=== PATIENT | female | born 1970 | race Hispanic/Latino ===

== ENCOUNTER 2017-01-13 19:46 | Emergency (ER) | payer SELFPAY ==
[~2017-01-13] VITALS: Ht 157.5 cm; Wt 96.4 kg
[~2017-01-13 19:46] MED LIST: ACTOS15 MG PO; BACTRIM DS1 TAB PO; CEPHALEXIN500 MG OR; CEPHALEXIN500 MG PO; GLIPIZIDE10 MG PO; GLUCOPHAGE1000 MG PO; GLYBURIDE2.5 MG OR; LANTUS100 MG/ML SC; LEVOTHYROXIN75 MCG PO; LISINOPRIL10 MG OR; LORTAB 1010 MG PO; LORTAB 5/3255 MG PO; LORTAB5 PO; METFORMIN500 M1 OR; METRONIDAZOL500 MG PO; NOVOLIN 70/30 SC; ULTRAM50 M1 PO
[2017-01-13] MEDS ORDERED: METFORMIN500 MG PO (20:00)
[2017-01-13] MEDS ORDERED: LOSARTAN POTASS50 MG PO (20:01)
[2017-01-13] MEDS ORDERED: VENLAFAXINE HCL75 M1 PO (20:01)
[2017-01-13] MEDS ORDERED: HYDROCHLOROT12.5 MG PO (20:02)
[2017-01-13] MEDS ORDERED: ZOFRAN ODT4 MG PO (20:03)
[2017-01-13] MEDS ORDERED: LEVEMIR100 UNIT/M SC (20:04)
[2017-01-13 20:55] LABS: URINE BILIRUBIN - DIPSTICK NEGATIVE (NEGATIVE); URINE BLOOD DIPSTICK NEGATIVE (NEGATIVE); URINE COLOR YELLOW; URINE GLUCOSE - DIPSTICK >=1000 mg/dL (NEGATIVE); URINE KETONE 15 mg/dL (NEGATIVE); URINE LEUK ESTERASE NEGATIVE (NEGATIVE); URINE NITRITE - DIPSTICK NEGATIVE (Negative); URINE PROTEIN - DIPSTICK NEGATIVE (NEG-TRACE); URINE SPECIFIC GRAVITY 1.015; URINE UROBILINOGEN - DIPSTICK 0.2 E.U./dL (0.2)
[2017-01-13 20:56] LABS: HEMATOCRIT 44.8 % (37.0-47.0); HEMOGLOBIN 14.9 g/dl (12.0-16.0); IMMATURE GRANULOCYTES 0.2 % (0.0-1.0); MEAN CELL VOLUME 84.5 fL CALC (80.0-100.0); MEAN CORPUSCULAR HGB 28.1 pG CALC (26.0-32.0); MEAN CORPUSCULAR HGB CONC 33.3 g/L CALC (32.0-36.0); NEUT# 4.85 thou/uL (2.00-7.15); RED BLOOD COUNT 5.3 mill/uL (4.20-5.60); RED CELL DISTRI WIDTH 12.6 % (11.5-15.5); URINE CLARITY CLEAR
[2017-01-13 21:07] LABS: ALBUMIN 4.5 g/dL (3.2-5.0); ALKALINE PHOSPHATASE 125 u/l (38-126); AMYLASE 51 u/l (30-110); ANION GAP 18 (6-22 (CALC)); BILIRUBIN, TOTAL 0.6 mg/dL (0.0-1.4); BUN 10 mg/dL (7-17); BUN/CREATININE RATIO 21 (12-20 (CALC)); CALCIUM 9.6 mg/dL (8.4-10.2); CARBON DIOXIDE 27 mmol/l (22-30); CHLORIDE 99 mmol/l (95-108); CREATININE 0.5 mg/dL (0.5-1.0); GFR > 60 ML/MIN (>=60 (CALC)); GFR FOR AFR.AMER. > 60 ML/MIN (>=60 (CALC)); GLUCOSE 334 mg/dL (65-105); LIPASE 235 u/l (23-300); POTASSIUM 4.1 mmol/l (3.5-5.1); SGOT/AST 40 u/l (14-36); SGPT/ALT 71 u/l (9-52); SODIUM 139 mmol/l (137-146)
[2017-01-13 21:19] LABS: MYOGLOBIN 50 ng/mL (0 - 62)
[2017-01-13 22:14] VITALS: BP 128/65
== END 2017-01-13 22:21 | disposition home or self-care (01) | DRG 392 ==
LOC: ED 19:46
PROVIDERS: Emergency Medicine
DX: R11.2 Nausea with vomiting, unspecified (principal); E11.9 Type 2 diabetes mellitus without complications; Z79.4 Long term (current) use of insulin
CPT/HCPCS: S0164

== ENCOUNTER 2017-03-30 18:57 | Emergency (ER) | payer BC ==
[~2017-03-30] VITALS: Ht 157.5 cm; Wt 99.0 kg
[~2017-03-30 18:57] MED LIST changes: +HYDROCHLOROT12.5 MG PO; +LEVEMIR100 UNIT/M SC; +LOSARTAN POTASS50 MG PO; +METFORMIN500 MG PO; +VENLAFAXINE HCL75 M1 PO; +ZOFRAN ODT4 MG PO
[2017-03-30] MEDS ORDERED: ZESTRIL10 M1 PO (19:18)
[2017-03-30] MEDS ORDERED: LEVOTHYROXINE75 MCG PO (19:18)
[2017-03-30] MEDS ORDERED: LISINOP/HCTZ1 TAB PO (19:32)
[2017-03-30] MEDS ORDERED: LEVOTHYROXIN75 MC1 PO (19:33)
[2017-03-30] MEDS ORDERED: NOVOLIN 70/30 SC ×2 (19:34)
[2017-03-30 20:18] LABS: INFLUENZA A NONE DETECTED (NONE DETECT); INFLUENZA B NONE DETECTED (NONE DETECT)
[2017-03-30] MEDS ORDERED: ROBITUSSIN AC10 ML PO (20:24)
[2017-03-30] MEDS ORDERED: CEPHALEXIN500 MG PO (20:24)
[2017-03-30 20:30] VITALS: BP 149/74
== END 2017-03-30 20:30 | disposition home or self-care (01) | DRG 153 ==
LOC: ED 18:57
PROVIDERS: Emergency Medicine
DX: J06.9 Acute upper respiratory infection, unspecified (principal); E11.9 Type 2 diabetes mellitus without complications; I10 Essential (primary) hypertension

== ENCOUNTER 2017-04-08 19:21 | Inpatient (IN) | payer BC ==
[~2017-04-08] VITALS: Ht 157.5 cm; Wt 96.0 kg
[~2017-04-08 19:21] MED LIST changes: +LEVOTHYROXIN75 MC1 PO; +LEVOTHYROXINE75 MCG PO; +LISINOP/HCTZ1 TAB PO; +ROBITUSSIN AC10 ML PO; +ZESTRIL10 M1 PO
[2017-04-08 20:26] LABS: IMMATURE GRANULOCYTES 0.9 % (0.0-1.0); MEAN CELL VOLUME 85.5 fL CALC (80.0-100.0); MEAN CORPUSCULAR HGB 27.4 pG CALC (26.0-32.0); NEUT# 10.04 thou/uL (2.00-7.15); RED BLOOD COUNT 4.35 mill/uL (4.20-5.60)
[2017-04-08 20:28] LABS: URINE BILIRUBIN - DIPSTICK NEGATIVE (NEGATIVE); URINE BLOOD DIPSTICK NEGATIVE (NEGATIVE); URINE COLOR YELLOW; URINE GLUCOSE - DIPSTICK >=1000 mg/dL (NEGATIVE); URINE KETONE NEGATIVE (NEGATIVE); URINE LEUK ESTERASE NEGATIVE (NEGATIVE); URINE NITRITE - DIPSTICK NEGATIVE (Negative); URINE PROTEIN - DIPSTICK NEGATIVE (NEG-TRACE); URINE SPECIFIC GRAVITY 1.015; URINE UROBILINOGEN - DIPSTICK 0.2 E.U./dL (0.2)
[2017-04-08 20:29] LABS: HEMATOCRIT 37.2 % (37.0-47.0); HEMOGLOBIN 11.9 g/dl (12.0-16.0)
[2017-04-08 20:30] LABS: URINE CLARITY CLEAR
[2017-04-08 20:41] LABS: ALKALINE PHOSPHATASE 130 u/l (38-126); AMYLASE 41 u/l (30-110); ANION GAP 18 (6-22 (CALC)); BILIRUBIN, TOTAL 0.5 mg/dL (0.0-1.4); BUN 11 mg/dL (7-17); BUN/CREATININE RATIO 17 (12-20 (CALC)); CARBON DIOXIDE 29 mmol/l (22-30); CHLORIDE 95 mmol/l (95-108); CREATININE 0.6 mg/dL (0.5-1.0); GFR > 60 ML/MIN (>=60 (CALC)); GFR FOR AFR.AMER. > 60 ML/MIN (>=60 (CALC)); LIPASE 53 u/l (23-300); POTASSIUM 4.1 mmol/l (3.5-5.1); SGOT/AST 19 u/l (14-36); SGPT/ALT 30 u/l (9-52); SODIUM 137 mmol/l (137-146); TOTAL PROTEIN 7.7 g/dL (6.3-8.2)
[2017-04-08 23:20] VITALS: BP 136/73
[2017-04-09] VITALS (20 sets, daily range): BP systolic 86–110; BP diastolic 49–66
[2017-04-09 06:59] LABS: HEMOGLOBIN 13.8 g/dl (12.0-16.0); IMMATURE GRANULOCYTES 0.2 % (0.0-1.0); MEAN CELL VOLUME 85.7 fL CALC (80.0-100.0); MEAN CORPUSCULAR HGB 27.3 pG CALC (26.0-32.0); MEAN CORPUSCULAR HGB CONC 31.9 g/L CALC (32.0-36.0); PLATELET COUNT 456 thou/uL (130-400); RED BLOOD COUNT 5.05 mill/uL (4.20-5.60); RED CELL DISTRI WIDTH 13.2 % (11.5-15.5)
[2017-04-09 07:06] LABS: ALBUMIN 3.2 g/dL (3.2-5.0); BILIRUBIN, TOTAL 1.1 mg/dL (0.0-1.4); POTASSIUM 4.7 mmol/l (3.5-5.1); TOTAL PROTEIN 6.2 g/dL (6.3-8.2)
[2017-04-09 07:23] LABS: CREATININE 1.6 mg/dL (0.5-1.0); HEMATOCRIT 43.3 % (37.0-47.0); MANUAL DIFFERENTIAL YES
[2017-04-09 07:24] LABS: BAND 32 % (0-8); PLATELET ESTIMATE MOD INCREASE
== END 2017-04-09 22:19 | DRG 392 ==
LOC: ED 19:21 → ED-I 19:35 → ED 22:38 → MS2 22:39 → ICU 22:39
PROVIDERS: Emergency Medicine; Internal Medicine; ADMIT Internal Medicine; ATTEND Internal Medicine
DX: K57.20 Diverticulitis of large intestine with perforation and abscess without bleeding (principal); N17.9 Acute kidney failure, unspecified; K56.609 Unspecified intestinal obstruction, unspecified as to partial versus complete obstruction; I10 Essential (primary) hypertension; E11.9 Type 2 diabetes mellitus without complications; E03.9 Hypothyroidism, unspecified
CPT/HCPCS: J3370; Q9967; S0164

== ENCOUNTER 2017-06-19 10:15 | Emergency (ER) | payer BC ==
[~2017-06-19] VITALS: Ht 157.5 cm; Wt 90.0 kg
[2017-06-19 10:54] LABS: URINE BILIRUBIN - DIPSTICK NEGATIVE (NEGATIVE); URINE BLOOD DIPSTICK NEGATIVE (NEGATIVE); URINE COLOR YELLOW; URINE GLUCOSE - DIPSTICK NEGATIVE (NEGATIVE); URINE KETONE NEGATIVE (NEGATIVE); URINE LEUK ESTERASE NEGATIVE (NEGATIVE); URINE NITRITE - DIPSTICK NEGATIVE (Negative); URINE PH 5.5 (4.5-8.0); URINE PROTEIN - DIPSTICK NEGATIVE (NEG-TRACE); URINE SPECIFIC GRAVITY 1.015; URINE UROBILINOGEN - DIPSTICK 0.2 E.U./dL (0.2)
[2017-06-19 10:55] LABS: URINE CLARITY CLEAR
[2017-06-19 11:05] LABS: HEMATOCRIT 38.8 % (37.0-47.0); HEMOGLOBIN 12.4 g/dl (12.0-16.0); IMMATURE GRANULOCYTES 0.4 % (0.0-1.0); MEAN CELL VOLUME 84.7 fL CALC (80.0-100.0); MEAN CORPUSCULAR HGB 27.1 pG CALC (26.0-32.0); NEUT# 9.33 thou/uL (2.00-7.15); RED BLOOD COUNT 4.58 mill/uL (4.20-5.60)
[2017-06-19 11:12] LABS: ALKALINE PHOSPHATASE 85 u/l (38-126); ANION GAP 20 (6-22 (CALC)); BILIRUBIN, TOTAL 0.5 mg/dL (0.0-1.4); BUN 18 mg/dL (7-17); CARBON DIOXIDE 22 mmol/l (22-30); CHLORIDE 101 mmol/l (95-108); POTASSIUM 4.3 mmol/l (3.5-5.1); SGOT/AST 21 u/l (14-36); SGPT/ALT 35 u/l (9-52); SODIUM 139 mmol/l (137-146)
[2017-06-19 11:13] LABS: ALBUMIN 4.2 g/dL (3.2-5.0); BUN/CREATININE RATIO 30 (12-20 (CALC)); CREATININE 0.6 mg/dL (0.5-1.0); GFR > 60 ML/MIN (>=60 (CALC)); GFR FOR AFR.AMER. > 60 ML/MIN (>=60 (CALC)); TOTAL PROTEIN 8.4 g/dL (6.3-8.2)
[2017-06-19] MEDS ORDERED: TORADOL PO (15:52)
[2017-06-19] MEDS ORDERED: BENTYL10 MG PO (15:52)
[2017-06-19 16:00] VITALS: BP 125/65
== END 2017-06-19 16:00 | disposition home or self-care (01) | DRG 392 ==
LOC: ED 10:15
PROVIDERS: Emergency Medicine
DX: R10.31 Right lower quadrant pain (principal); N83.202 Unspecified ovarian cyst, left side; N83.201 Unspecified ovarian cyst, right side; E11.9 Type 2 diabetes mellitus without complications; I10 Essential (primary) hypertension
CPT/HCPCS: Q9967

== ENCOUNTER 2017-06-22 23:51 | Emergency (ER) | payer BC ==
[~2017-06-22] VITALS: Ht 157.5 cm; Wt 94.8 kg
[~2017-06-22 23:51] MED LIST changes: +BENTYL10 MG PO; +TORADOL PO
[2017-06-23 01:28] LABS: HEMATOCRIT 38.9 % (37.0-47.0); HEMOGLOBIN 12.7 g/dl (12.0-16.0); IMMATURE GRANULOCYTES 0.4 % (0.0-1.0); MEAN CELL VOLUME 83.1 fL CALC (80.0-100.0); MEAN CORPUSCULAR HGB 27.1 pG CALC (26.0-32.0); MEAN CORPUSCULAR HGB CONC 32.6 g/L CALC (32.0-36.0); NEUT# 11.3 thou/uL (2.00-7.15); RED BLOOD COUNT 4.68 mill/uL (4.20-5.60); RED CELL DISTRI WIDTH 13.9 % (11.5-15.5)
[2017-06-23 01:30] LABS: URINE BILIRUBIN - DIPSTICK NEGATIVE (NEGATIVE); URINE BLOOD DIPSTICK NEGATIVE (NEGATIVE); URINE COLOR YELLOW; URINE GLUCOSE - DIPSTICK NEGATIVE (NEGATIVE); URINE KETONE 15 mg/dL (NEGATIVE); URINE LEUK ESTERASE NEGATIVE (NEGATIVE); URINE NITRITE - DIPSTICK NEGATIVE (Negative); URINE PH 5.5 (4.5-8.0); URINE PROTEIN - DIPSTICK 30 mg/dL (NEG-TRACE); URINE SPECIFIC GRAVITY 1.025; URINE UROBILINOGEN - DIPSTICK 0.2 E.U./dL (0.2)
[2017-06-23 01:34] LABS: URINE CLARITY CLEAR
[2017-06-23 01:38] LABS: ALBUMIN 4.2 g/dL (3.2-5.0); ALKALINE PHOSPHATASE 107 u/l (38-126); AMYLASE 36 u/l (30-110); BILIRUBIN, TOTAL 0.5 mg/dL (0.0-1.4); BUN 16 mg/dL (7-17); BUN/CREATININE RATIO 21 (12-20 (CALC)); CHLORIDE 96 mmol/l (95-108); CREATININE 0.7 mg/dL (0.5-1.0); GFR > 60 ML/MIN (>=60 (CALC)); GFR FOR AFR.AMER. > 60 ML/MIN (>=60 (CALC)); LIPASE 54 u/l (23-300); POTASSIUM 4.4 mmol/l (3.5-5.1); SGOT/AST 14 u/l (14-36); SGPT/ALT 30 u/l (9-52); SODIUM 137 mmol/l (137-146)
[2017-06-23 01:39] LABS: URINE AMORPH SEDIMENT FEW hpf (NONE-FEW); URINE BACTERIA FEW hpf; URINE MUCUS FEW hpf (NONE-FEW); URINE RBC 0-2 RBC/hpf (0-5); URINE SQUAMOUS EPITHELIAL CELL MANY EPI/hpf (0-FEW)
[2017-06-23 01:39] LABS: ANION GAP 16 (6-22 (CALC)); CARBON DIOXIDE 29 mmol/l (22-30)
[2017-06-23] MEDS ORDERED: PHENERGAN25 M1 PR (02:01)
[2017-06-23 02:17] VITALS: BP 134/70
== END 2017-06-23 02:17 | disposition home or self-care (01) | DRG 392 ==
LOC: ED 23:51
PROVIDERS: Family Medicine
DX: A08.4 Viral intestinal infection, unspecified (principal); R10.84 Generalized abdominal pain; R11.2 Nausea with vomiting, unspecified; R50.9 Fever, unspecified; Z87.19 Personal history of other diseases of the digestive system

== ENCOUNTER 2017-09-12 15:51 | Emergency (ER) | payer BC ==
[~2017-09-12] VITALS: Ht 157.5 cm; Wt 95.0 kg
[~2017-09-12 15:51] MED LIST changes: +PHENERGAN25 M1 PR
[2017-09-12 16:47] LABS: HEMATOCRIT 36.9 % (37.0-47.0); HEMOGLOBIN 12.4 g/dl (12.0-16.0); IMMATURE GRANULOCYTES 0.3 % (0.0-5.0); MEAN CELL VOLUME 84.8 fL CALC (80.0-100.0); MEAN CORPUSCULAR HGB 28.5 pG CALC (26.0-32.0); MEAN CORPUSCULAR HGB CONC 33.6 g/L CALC (32.0-36.0); NEUT# 6.59 thou/uL (2.00-7.15); RED BLOOD COUNT 4.35 mill/uL (4.20-5.60); RED CELL DISTRI WIDTH 13.6 % (11.5-15.5)
[2017-09-12 17:02] LABS: ALBUMIN 4.2 g/dL (3.2-5.0); ALKALINE PHOSPHATASE 105 u/l (38-126); ANION GAP 16 (6-22 (CALC)); BILIRUBIN, TOTAL 0.3 mg/dL (0.0-1.4); BUN 17 mg/dL (7-17); BUN/CREATININE RATIO 28 (12-20 (CALC)); CARBON DIOXIDE 25 mmol/l (22-30); CHLORIDE 103 mmol/l (95-108); CREATININE 0.6 mg/dL (0.5-1.0); GFR > 60 ML/MIN (>=60 (CALC)); GFR FOR AFR.AMER. > 60 ML/MIN (>=60 (CALC)); POTASSIUM 3.7 mmol/l (3.5-5.1); SGPT/ALT 41 u/l (9-52); SODIUM 140 mmol/l (137-146); TOTAL PROTEIN 8.1 g/dL (6.3-8.2)
[2017-09-12 17:04] LABS: SGOT/AST 27 u/l (14-36)
[2017-09-12] MEDS ORDERED: PROTONIX40 MG PO (17:26)
[2017-09-12 17:30] VITALS: BP 117/62
== END 2017-09-12 17:56 | disposition home or self-care (01) | DRG 313 ==
LOC: ED 15:51
PROVIDERS: Emergency Medicine
DX: R07.89 Other chest pain (principal); I10 Essential (primary) hypertension; R06.02 Shortness of breath; E11.9 Type 2 diabetes mellitus without complications; Z79.4 Long term (current) use of insulin

== ENCOUNTER 2018-02-06 17:48 | Emergency (ER) | payer BC ==
[~2018-02-06] VITALS: Ht 157.5 cm; Wt 100.0 kg
[~2018-02-06 17:48] MED LIST changes: +PROTONIX40 MG PO
[2018-02-06 18:00] VITALS: BP 144/80
== END 2018-02-06 18:13 | disposition left against medical advice (07) | DRG 951 ==
LOC: ED 17:48 → LWOBS 18:12
DX: Z91.19 Patient's noncompliance with other medical treatment and regimen (principal)

== ENCOUNTER 2020-02-03 06:55 | Emergency (ER) | payer BC ==
[~2020-02-03] VITALS: Ht 157.5 cm; Wt 97.3 kg
[2020-02-03 07:14] LABS: HEMOGLOBIN 14.3 g/dl (12.0-16.0); IMMATURE GRANULOCYTES 0.3 % (0.0-5.0); MEAN CELL VOLUME 86.5 fL CALC (80.0-100.0); MEAN CORPUSCULAR HGB 27.6 pG CALC (26.0-32.0); MEAN CORPUSCULAR HGB CONC 31.9 g/dL CAL (32.0-36.0); NEUT# 6.46 thou/uL (2.00-7.15); RED BLOOD COUNT 5.18 mill/uL (4.20-5.60); RED CELL DISTRI WIDTH 12.7 % (11.5-15.5)
[2020-02-03 07:15] LABS: HEMATOCRIT 44.8 % (37.0-47.0)
[2020-02-03] MEDS ORDERED: RIZATRIPTAN BENZ5 M1 PO (07:31)
[2020-02-03] MEDS ORDERED: JANUVIA25 MG PO (07:31)
[2020-02-03] MEDS ORDERED: LOSARTAN POTASS50 MG PO (07:32)
[2020-02-03 07:33] LABS: ALBUMIN 4.5 g/dL (3.2-5.0); ALKALINE PHOSPHATASE 83 u/l (38-126); ANION GAP 14 (6-22 (CALC)); BUN 16 mg/dL (7-17); BUN/CREATININE RATIO 29 (12-20 (CALC)); CARBON DIOXIDE 25 mmol/l (22-30); CHLORIDE 102 mmol/l (95-108); CREATININE 0.5 mg/dL (0.5-1.0); GFR > 60 ML/MIN (>=60 (CALC)); GFR FOR AFR.AMER. > 60 ML/MIN (>=60 (CALC)); POTASSIUM 4.3 mmol/l (3.5-5.1); SGOT/AST 20 u/l (14-36); SODIUM 136 mmol/l (137-146); TOTAL PROTEIN 8.3 g/dL (6.3-8.2)
[2020-02-03 07:37] LABS: BILIRUBIN, TOTAL 0.5 mg/dL (0.0-1.4)
[2020-02-03 08:41] VITALS: BP 124/71
== END 2020-02-03 08:48 | disposition home or self-care (01) | DRG 103 ==
LOC: ED 06:55
PROVIDERS: Family Medicine
DX: R51.9 Headache, unspecified (principal); E11.9 Type 2 diabetes mellitus without complications; I10 Essential (primary) hypertension; E66.9 Obesity, unspecified; Z79.84 Long term (current) use of oral hypoglycemic drugs; Z20.828 Contact with and (suspected) exposure to other viral communicable diseases

== ENCOUNTER 2020-07-08 15:54 | Emergency (ER) | payer BC ==
[~2020-07-08] VITALS: Ht 160 cm; Wt 94.0 kg
[~2020-07-08 15:54] MED LIST changes: +JANUVIA25 MG PO; +RIZATRIPTAN BENZ5 M1 PO
[2020-07-08] MEDS ORDERED: TRESIBA FL200 UNIT/M SC (17:26)
[2020-07-08] MEDS ORDERED: [UNRECOGNIZED DRUG - OTHER] PO (17:27)
[2020-07-08] MEDS ORDERED: ONDANSETRON4 MG PO (17:27)
[2020-07-08] MEDS ORDERED: ORPHENADRINE100 MG PO (18:05)
[2020-07-08 18:09] VITALS: BP 132/82
== END 2020-07-08 18:09 | disposition home or self-care (01) | DRG 103 ==
LOC: ED 15:54
DX: R51.9 Headache, unspecified (principal); I10 Essential (primary) hypertension; E11.9 Type 2 diabetes mellitus without complications; Z79.4 Long term (current) use of insulin

== ENCOUNTER 2020-11-18 14:50 | Emergency (ER) | payer BC ==
[~2020-11-18] VITALS: Ht 160 cm; Wt 100.0 kg
[~2020-11-18 14:50] MED LIST changes: +ONDANSETRON4 MG PO; +ORPHENADRINE100 MG PO; +TRESIBA FL200 UNIT/M SC; +[UNRECOGNIZED DRUG - OTHER] PO
[2020-11-18] MEDS ORDERED: ZOFRAN4 MG/TAB PO (17:48)
[2020-11-18] MEDS ORDERED: FIORICET PO (17:48)
[2020-11-18 17:55] VITALS: BP 148/68
== END 2020-11-18 17:59 | disposition home or self-care (01) | DRG 103 ==
LOC: ED 14:50
DX: R51.9 Headache, unspecified (principal); I10 Essential (primary) hypertension; E11.9 Type 2 diabetes mellitus without complications; Z79.4 Long term (current) use of insulin; Z20.822 Contact with and (suspected) exposure to COVID-19

== ENCOUNTER 2021-12-25 19:25 | Observation (INO) | payer BC ==
[~2021-12-25] VITALS: Ht 160 cm; Wt 97.0 kg
[~2021-12-25 19:25] MED LIST changes: +FIORICET PO; +METFORMIN500 M2 PO; -METFORMIN500 MG PO; +ZOFRAN4 MG/TAB PO
[2021-12-25 21:03] VITALS: BP 120/65
[2021-12-25 21:33] VITALS: BP 159/75
[2021-12-25 21:37] LABS: IMMATURE GRANULOCYTES 0.1 % (0.0-5.0); MEAN CELL VOLUME 84.7 fL CALC (80.0-100.0); MEAN CORPUSCULAR HGB 27.8 pG CALC (26.0-32.0); MEAN CORPUSCULAR HGB CONC 32.8 g/dL CAL (32.0-36.0); NEUT# 5.5 thou/uL (2.00-7.15); RED BLOOD COUNT 4.39 mill/uL (4.20-5.60); RED CELL DISTRI WIDTH 12.5 % (11.5-15.5)
[2021-12-25 21:38] LABS: HEMATOCRIT 37.2 % (37.0-47.0); HEMOGLOBIN 12.2 g/dl (12.0-16.0)
[2021-12-25 21:52] LABS: BUN 18 mg/dL (7-17); BUN/CREATININE RATIO 30 (12-20 (CALC)); CARBON DIOXIDE 25 mmol/l (22-30); CHLORIDE 100 mmol/l (95-108); CREATININE 0.6 mg/dL (0.5-1.0); GFR FOR AFR.AMER. > 60 ML/MIN (>=60 (CALC)); GFR OTHER RACES > 60 ML/MIN (>=60 (CALC)); LIPASE 1811 u/l (23-300); SGOT/AST 30 u/l (14-36); SODIUM 134 mmol/l (137-146); TOTAL PROTEIN 7.1 g/dL (6.3-8.2)
[2021-12-25 21:55] LABS: ALKALINE PHOSPHATASE 135 u/l (38-126); ANION GAP 12 (6-22 (CALC)); BILIRUBIN, TOTAL 0.2 mg/dL (0.0-1.4); POTASSIUM 3.4 mmol/l (3.5-5.1)
[2021-12-25 22:01] VITALS: BP 126/77
[2021-12-25 22:04] LABS: MYOGLOBIN 33 ng/mL (0 - 62)
[2021-12-25 23:31] LABS: URINE BILIRUBIN - DIPSTICK NEGATIVE (NEGATIVE); URINE BLOOD DIPSTICK NEGATIVE (NEGATIVE); URINE COLOR YELLOW; URINE GLUCOSE - DIPSTICK >=1000 mg/dL (NEGATIVE); URINE KETONE NEGATIVE (NEGATIVE); URINE PH 5.5 (4.5-8.0); URINE PROTEIN - DIPSTICK NEGATIVE (NEG-TRACE); URINE UROBILINOGEN - DIPSTICK 0.2 E.U./dL (0.2)
[2021-12-25 23:41] LABS: URINE NITRITE - DIPSTICK POSITIVE (Negative)
[2021-12-25 23:42] LABS: URINE BACTERIA MANY hpf; URINE EPITHELIAL CELLS FEW EPI/hpf (0-FEW); URINE LEUK ESTERASE NEGATIVE (NEGATIVE)
[2021-12-26] VITALS (9 sets, daily range): BP systolic 109–143; BP diastolic 61–71
[2021-12-26 13:28] LABS: ALKALINE PHOSPHATASE 98 u/l (38-126); AMYLASE 63 u/l (30-110); ANION GAP 11 (6-22 (CALC)); BILIRUBIN, TOTAL 0.2 mg/dL (0.0-1.4); BUN 12 mg/dL (7-17); BUN/CREATININE RATIO 22 (12-20 (CALC)); CARBON DIOXIDE 27 mmol/l (22-30); CHLORIDE 102 mmol/l (95-108); CREATININE 0.5 mg/dL (0.5-1.0); GFR FOR AFR.AMER. > 60 ML/MIN (>=60 (CALC)); GFR OTHER RACES > 60 ML/MIN (>=60 (CALC)); LIPASE 160 u/l (23-300); SGOT/AST 49 u/l (14-36); SODIUM 136 mmol/l (137-146); TOTAL PROTEIN 6.9 g/dL (6.3-8.2)
[2021-12-26 13:29] LABS: POTASSIUM 4.2 mmol/l (3.5-5.1)
[2021-12-26] MEDS ORDERED: HYDROCHLOROT25 MG PO (14:02)
[2021-12-26] MEDS ORDERED: ATORVASTATIN CA20 MG PO (14:28)
[2021-12-27 04:40] VITALS: BP 126/53
[2021-12-27 05:44] VITALS: BP 126/53
[2021-12-27 06:20] VITALS: BP 137/78
[2021-12-27 07:15] VITALS: BP 137/78
[2021-12-27 09:16] VITALS: BP 137/78
== END 2021-12-27 11:42 | disposition home or self-care (01) | DRG 439 ==
LOC: ED 19:25 → ED-I 12-26 00:50 → ED 12-26 01:15 → MS2 12-26 01:16
PROVIDERS: Emergency Medicine; ADMIT Internal Medicine; ATTEND Internal Medicine
DX: K85.90 Acute pancreatitis without necrosis or infection, unspecified (principal); N39.0 Urinary tract infection, site not specified; E11.65 Type 2 diabetes mellitus with hyperglycemia; I10 Essential (primary) hypertension; N83.209 Unspecified ovarian cyst, unspecified side; E03.9 Hypothyroidism, unspecified; B96.1 Klebsiella pneumoniae [K. pneumoniae] as the cause of diseases classified elsewhere; Z79.85 Long-term (current) use of injectable non-insulin antidiabetic drugs; Z79.4 Long term (current) use of insulin; Z79.84 Long term (current) use of oral hypoglycemic drugs; Z20.822 Contact with and (suspected) exposure to COVID-19
CPT/HCPCS: G0378; J1650; Q9967; S0164